=== PATIENT | male | born 1960 | race Caucasian/White ===

== ENCOUNTER 2017-11-11 16:21 | Observation (INO) ==
--- NOTE | 2017-11-11 19:23 | Emergency Department Note ---
Disposition Clinical Impression: Chest pain Qualifiers: Chest pain type: unspecified Qualified Code(s): R07.9 - Chest pain, unspecified Disposition: Admitted As Inpatient Condition: Good Referrals: NONE,PCP [Primary Care Provider] - Forms: ED Satisfaction Letter Time of Disposition: 20:25 Chest Pain HPI - General Chief Complaint: ED Chest Pain Stated Complaint: CP Tightness Time Seen by Provider: 11/11/17 19:17 Source: patient Limitations: no limitations Vital Signs Reviewed: Yes Nursing Notes Reviewed: Yes - History of Present Illness HPI Narrative: Patient is a 57-year-old male who presents to [facility] ED with a chief complaint of chest pain. States his symptoms started approximately 5 hours ago while he was at work. 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 Patient denies any nausea, vomiting, fever or chills. No recent cough or cold. States he has been getting intermittently short of breath and lightheaded today with exertion as well. No prior medical problems though he does not follow with a primary care physician. Pt complaint: chest pain Onset (ago): hour(s) Duration: gradually worsening Onset: during exertion Pain Location: substernal Severity: moderate Severity scale (1-10): 7 Quality: aching, heaviness Pain Radiation: none Improves with: nothing Worsens with: exertion Associated symptoms: Reports: dyspnea. Denies: nausea, vomiting Treatments prior to arrival chest pain: none - Related Data Home Medications Medication Instructions Recorded Confirmed Cetirizine HCl [Zyrtec] 10 mg PO DAILY 11/11/17 11/11/17 Ibuprofen [Motrin] 400 - 800 mg PO Q6H PRN 11/11/17 11/11/17 Allergies Allergy/AdvReac Type Severity Reaction Status Date / Time No Known Allergies Allergy Verified 11/11/17 16:37 All systems ED: reviewed and negative except as stated. Chest Pain PMH - Past Medical History Medical history: Reports: hyperlipidemia, hypertension Psychiatric history: Reports: no psych history - Social History Smoking Status: Never smoker Alcohol use: Reports: occasionally Drug use: Reports: none Physical Exam - General Limitations: no limitations General appearance: alert, in no apparent distress - Head Head exam: atraumatic, normocephalic, normal inspection - Eye Eye exam: Present: normal appearance, EOMI - ENT ENT exam: normal exam, normal oropharynx, mucous membranes moist - Neck Neck exam: Present: normal inspection, full ROM, trachea midline - Chest Chest inspection: Present: normal inspection, symmetric chest wall rise - Respiratory Respiratory exam: Present: normal lung sounds bilaterally - Cardiovascular Cardiovascular exam: Present: regular rate, normal rhythm, normal heart sounds - Abdominal Exam Abdominal exam: Present: soft, Non-Tender. Absent: tenderness, distention, guarding, rebound, rigidity - Extremities Exam Extremities exam: Present: normal inspection, full ROM. Absent: tenderness, pedal edema - Back Exam Back exam: Present: normal inspection, full ROM. Absent: tenderness - Neurological Exam Neurological exam: Present: alert, oriented X3 - Psychiatric Psychiatric exam: Present: normal affect, normal mood - Skin Skin exam: Present: warm, dry, intact, normal color Course Course Narrative: Patient seen and examined. Substernal chest pain worse with exertion. Cardiopulmonary workup initiated. We will likely admit for ACS workup. - Reevaluation(s) Reevaluation #1: Labwork, imaging unremarkable. However since his symptoms are very concerning, we will admit for ACS workup. Discussed with hospitalist Dr. Reich who has accepted patient for admission. Time: 20:28 Vital Signs Temperature 98.6 F 11/11/17 16:33 Pulse Rate 99 11/11/17 16:33 Respiratory Rate 18 11/11/17 16:33 Blood Pressure 137/98 11/11/17 16:33 O2 Sat by Pulse Oximetry 94 11/11/17 16:33 Temperature 98.6 F 11/11/17 16:33 Pulse Rate 94 11/11/17 21:22 Respiratory Rate 18 11/11/17 21:22 Blood Pressure 104/86 11/11/17 21:22 O2 Sat by Pulse Oximetry 95 11/11/17 21:22 Oxygen Delivery Oxygen Delivery Room Air Chest Pain - Medical Records Medical records reviewed: Yes I reviewed the patient's medical records. - Lab Data Lab results reviewed: Yes I reviewed the patient's lab results. Result diagrams: 11/11/17 18:12 11/11/17 18:12 Lab Results 11/11/17 11/11/17 11/11/17 Range/Units 18:12 18:12 20:10 WBC 9.3 (4.3-11.1) K/mcL RBC 6.12 H (4.19-5.50) M/mcL Hgb 19.3 H (12.9-16.9) g/dL Hct 54.2 H (37.5-50.1) % MCV 88.6 (83.0-100.0) fL MCH 31.5 (28.0-33.3) pg MCHC 35.6 H (31.6-35.5) g/dL RDW 12.6 (11.5-14.5) % Plt Count 227 (140-400) K/mcL MPV 10.8 (9.4-12.4) fL Immature Gran % 0.5 (0-4) % Seg Neutrophils % 51.1 % Lymphocytes % 36.6 % Monocytes % 9.1 % Eosinophils % 1.5 % Basophils % 1.2 % Neutrophils # 4.7 (1.6-8.9) K/mcL Lymphocytes # 3.4 (0.6-4.6) K/mcL Monocytes # 0.8 (0.0-1.3) K/mcL Eosinophils # 0.1 (0.0-0.6) K/mcL Basophils # 0.1 (0.0-0.2) K/mcL PT 11.2 (9.4-12.1) Seconds INR 1.0 APTT 20.2 L (26.0-36.0) Seconds Sodium 132 L (136-145) mEq/L Potassium 4.0 (3.5-5.1) mEq/L Chloride 100 (98-107) mEq/L Carbon Dioxide 22 L (23-29) mEq/L BUN 18 (6-20) mg/dL Creatinine 0.93 (0.70-1.30) mg/dL Est GFR ( Amer) > 60 (> 60) Est GFR (Non-Af Amer) > 60 (> 60) BUN/Creatinine Ratio 19 (6-26) Glucose 297 H (70-105) mg/dL Calculated Osmolality 287 (280-300) Calcium 9.5 (8.6-10.3) mg/dL Troponin I < 0.03 (< 0.04) ng/mL - Radiology Data Radiology results reviewed: Yes I reviewed the patient's radiology results. Chest X-Ray 11/11/17 16:44 IMPRESSION: No acute cardiopulmonary process. D/ 11/11/2017 17:19:07 Moses Davis MD / adarsh Interpreting Provider: Moses Davis MD - EKG Data EKG attestation: Yes I reviewed and interpreted this EKG. EKG results narrative: EKG done at 1625 shows sinus tachycardia with a rate of [address] elevation or depression. Q waves noted in lead 3 as well as inverted T wave. No prior EKG for comparison. Frequent PVCs noted. Heart Score - Score History: Moderately Suspicious EKG: Non Specific repolarisation Disturbance Age: 45-65 Risk Factors: 1-2 risk factors Troponin: Less than normal limit HEART Score Total: 4 Attestation Statement - Attestation Attestation: I, Jerson Paul DO, examined this patient [id number] and my medical decision-making was reviewed with Minerva Esquivel DO , Resident Physician. I agree with the documented findings, disposition and treatment plan as described except to the extent set forth below. Please see my progress notes for details. 57-year-old male presents emergency room with anginal like symptoms. He said he is on off for quite a long time. He has never been fully evaluated for the presentation today. Today the symptoms were worse than ever before.. Patient denies any other specific cardiac history this time. Patient denies shortness of breath headache vision changes nausea vomiting or diarrhea. Denies any trauma or injury. He has no specific cardiac history but does have hypertension and diabetes. Vital signs are stable in presentation. No other acute issues. Patient evaluated at the bedside showing normal physical exam trachea is midline lungs are clear to auscultation heart is regular. Abdomen is soft. Patient still has mild pressure to the anterior chest wall. Patient has had almost complete resolution of symptoms prior to coming in because of anginal-like presentation. Patient had EKG chest x-ray screening labs completed this time with no remarkable changes are noted at this point. EKG shows stable rhythm. Patient will be provided with aspirin and she was sent here. Hospitalist was contacted for admission. No other acute issues noted at this point. Patient will be admitted for further evaluation and management of what appears to be anginal-like presentation. See detailed recommendation physical exam, medical intervention, medical decision-making and disposition in the resident physician's note. No critical care by the patient's treatment course. Admission process will be established at this time. Currently, there is no reason to start the patient on anticoagulation since he is low risk based on presentation. We will continue monitoring in emergency room until admission process is completed 2100 Patient had complete resolution of the chest pressure with the nitroglycerin trial. Blood pressure maintained. Patient will require admission at this point. Nitroglycerin drip will be ordered at the patient has be presentation of these symptoms. Vital signs otherwise stable admission process to be completed at this point Patient admitted to the hospital this time for further evaluation. No other acute clinical concern is noted at this time
[2017-11-11 19:24] LABS: BUN/Creatinine Ratio 19 (6-26); Blood Urea Nitrogen 18 mg/dL (6-20); Calcium 9.5 mg/dL (8.6-10.3); Carbon Dioxide 22 mEq/L (23-29); Chloride 100 mEq/L (98-107); Glucose 297 mg/dL (70-105); Osmolality,Calculated 287 (280-300); Sodium 132 mEq/L (136-145); eGFR For African Americans > 60 (> 60); eGFR For Non-African Americans > 60 (> 60)
[2017-11-11 19:26] LABS: Troponin I < 0.03 ng/mL (< 0.04)
[2017-11-11 19:27] LABS: Basophils # 0.1 K/mcL (0.0-0.2); Basophils % 1.2 %; Eosinophils # 0.1 K/mcL (0.0-0.6); Eosinophils % 1.5 %; Hematocrit 54.2 % (37.5-50.1); Hemoglobin 19.3 g/dL (12.9-16.9); Immature Granulocytes % 0.5 % (0-4); Lymphocytes # 3.4 K/mcL (0.6-4.6); Lymphocytes % 36.6 %; Mean Corpuscular HGB Conc 35.6 g/dL (31.6-35.5); Mean Corpuscular Hemoglobin 31.5 pg (28.0-33.3); Mean Corpuscular Volume 88.6 fL (83.0-100.0); Mean Platelet Volume 10.8 fL (9.4-12.4); Monocytes # 0.8 K/mcL (0.0-1.3); Monocytes % 9.1 %; Neutrophils # 4.7 K/mcL (1.6-8.9); Platelet Count 227 K/mcL (140-400); Red Blood Count 6.12 M/mcL (4.19-5.50); Red Cell Distribution Width 12.6 % (11.5-14.5); Segmented Neutrophils % 51.1 %
[2017-11-11] MEDS ORDERED: Aspirin 81 MG TAB.CHEW PO STA (19:28)
[2017-11-11] MEDS ORDERED: Nitroglycerin 0.4 MG TAB.SUBL SL PRN ×2 (19:37→20:49)
[2017-11-11] MEDS ORDERED: 0.9 % Sodium Chloride 1,000 ML IVC ONE (19:37)
[2017-11-11] MEDS ORDERED: Aspirin 81 MG TAB.CHEW ONE (19:46)
[2017-11-11] MEDS ORDERED: Naloxone 0.4 MG/ML INJ IVP PRN (20:44)
[2017-11-11] MEDS ORDERED: traMADol 50 MG TABLET PO PRN (20:44)
[2017-11-11] MEDS ORDERED: Acetaminophen 325 MG TABLET PO PRN (20:44)
[2017-11-11 20:49] LABS: Prothrombin Time 11.2 Seconds (9.4-12.1)
[2017-11-11] MEDS ORDERED: *HR* Dextrose 50 % in Water (Syg) 50 ML SYRINGE IVP PRN (20:50)
[2017-11-11] MEDS ORDERED: Dextrose Gel 15 GM/37.5 ML TUBE PO PRN ×2 (20:50)
[2017-11-11] MEDS ORDERED: D5% in Water 1,000 ML IVC PRN (20:50)
[2017-11-11 20:56] LABS: Activated Partial Thrombo Time 20.2 Seconds (26.0-36.0)
--- NOTE | 2017-11-11 21:01 | Internal Med History&Physical ---
Date of Encounter: 11/11/17 Time of Encounter: 20:35 Assessment and Plan (1) Chest pain Current visit: Yes Status: Acute 1. Will cycle troponins, EKG's, and order ECHO. 2. Hold off on stress testing until evaluated by Hematology for polycythemia. 3. Stress testing can also be done as outpatient if he remains symptom free. Qualifiers: Chest pain type: unspecified Qualified Code(s): R07.9 - Chest pain, unspecified (2) Polycythemia Current visit: Yes Status: Acute 1. Will place on daily aspirin. 2. Repeat labs in the morning. 3. Consult hematology -- Dr. Hogan notified. (3) Hyperglycemia Current visit: Yes Status: Acute 1. Will check A1C and monitor glucose closely. 2. Will place on SSI. 3. Patient will likely need oral diabetic agents for glucose control. (4) DVT prophylaxis Current visit: Yes Status: Acute 1. Heparin SQ. Internal Medicine - H&P: HPI Chief complaint: chest pain Admitted From: Emergency Dept Plans for Post Hospital Care: Home History of present illness: Mr. Magana is a 57 year old male presents with a several hour history of substernal chest pain and pressure associated with some diaphoresis, nausea, and shortness of breath. He came to ER where chest pain was slowly improving without any intervention. He was and given some sublingual nitroglycerin and had complete pain relief. Because of his symptoms and history of hypertension, he was admitted to hospitalist service for further workup and care. Upon my assessment of the patient ER, he is chest pain-free now. Blood pressure is much improved now after one sublingual nitroglycerin dose. He denies any fevers, cough, congestion, vomiting, or diarrhea. He was feeling well until today when he had his chest pain episode at work. He recently moved back to [place] from [facility] and has no PCP. He has a history of hypertension but has not been treated for several years. He also said he had a history of prediabetes in the past but never did require treatment for diabetes. I reviewed his labs and note that he has a significant polycythemia. He is not a smoker and never has been. He does not look dehydrated. There is no family history of polycythemia rubra vera and he's never been told his hemoglobin is elevated. Given his elevation of hemoglobin and risk for sludge effect, we will consult hematology to help evaluate for possible polycythemia as well as placing him on aspirin and IV fluids. I would hold off on stress test until Hematology sees patient. Past Med Surg Social Fam HX - Past Medical History Attestation: Yes The following information was validated with the patient. Source: patient, other (ER notes) Medical history: hyperlipidemia, hypertension Psychiatric history: no psych history - Past Surgical History Surgical History: appendectomy - Social History Smoking Status: Never smoker Smokeless Tobacco Status: No Alcohol use: occasionally Drug use: none Occupational status: employed Current living situation: Home, With Family Activity Level: Independent ambulation, Very active Recent Out of Country Travel Within the Last 8 Weeks: No - Family History Mother Hx Family Cardiac Disorders: Yes Father Hx Family Cardiac Disorders: Yes Internal Medicine - H&P: Meds Cetirizine HCl [Zyrtec] 10 mg PO DAILY 11/11/17 [History] Ibuprofen [Motrin] 400 - 800 mg PO Q6H PRN 11/11/17 [History] 3 Allergy/AdvReac Type Severity Reaction Status Date / Time No Known Allergies Allergy Verified 11/11/17 16:37 - Constitutional Constitutional: no chills, no fever(s), no night sweats - EENT Eyes: no blurry vision, no change in vision Ears: no ear pain, no tinnitus Nose, mouth and throat: no nasal congestion, no nasal discharge, no sinus pressure, no sore throat - Cardiovascular Cardiovascular ROS IM: chest pain, diaphoresis, dyspnea, dyspnea on exertion, no orthopnea, no palpitations, no paroxysmal nocturnal dyspnea, no syncope - Respiratory Respiratory: no cough, no hemoptysis, no chest congestion, no excessive phlegm production, no change in phlegm color - Gastrointestinal Gastrointestinal: nausea, no abdominal pain, no diarrhea, no hematemesis, no hematochezia, no melena, no vomiting - Genitourinary Genitourinary ROS male: no dysuria, no flank pain, no hematuria - Musculoskeletal Musculoskeletal ROS IM: no arthralgias, no back pain - Integumentary Integumentary IM: no rash, no jaundice - Neurological Neurological ROS: no dizziness, no focal weakness, no frequent falls, no headache(s) - Psychiatric Psychiatric: no anxiety, no depression - Endocrine Endocrine IM: no polydipsia, no polyuria - Hematologic/Lymphatic Hematologic/Lymphatic: no easy bruising, no lymphadenopathy - Allergic/Immunologic Allergic/Immunologic: no wheezing, no GI upset with certain foods - Constitutional Vitals: Temp Pulse Resp BP Pulse Ox 98.6 F 101 18 111/86 96 11/11/17 16:33 11/11/17 20:34 11/11/17 20:34 11/11/17 20:34 11/11/17 20:34 General appearance: Present: cooperative, A&O X 3, pleasant, no acute distress, answers questions appropriately - Head Head exam: Present: atraumatic, normal inspection - Eye Eye exam: Present: EOMI, normal appearance, PERRL. Absent: scleral icterus Pupils: Present: normal accommodation - ENT ENT exam: Present: mucous membranes moist, normal exam, normal oropharynx - Neck Neck exam general surgery: Present: full ROM, supple. Absent: lymphadenopathy, tenderness, nuchal rigidity, thyromegaly - Expanded Neck Exam Neck exam: Absent: carotid bruit - Respiratory Respiratory exam: Present: CTAB. Absent: chest wall tenderness, rales, respiratory distress, rhonchi, wheezes - Cardiovascular Cardiovascular exam: Present: RRR, +S1, +S2. Absent: diastolic murmur, JVD, rubs, systolic murmur - GI/Abdominal GI/Abdominal exam: Present: normal bowel sounds, soft. Absent: guarding, hepatomegaly, mass, rebound, splenomegaly, tenderness - Extremities Exam Extremities exam: Present: full ROM, normal capillary refill, warm, radial pulses palpable and symmetrical. Absent: calf tenderness, joint swelling, pedal edema, tenderness - Back Exam Back exam: Present: normal inspection. Absent: CVA tenderness (L), CVA tenderness (R) - Neurological Exam Neurological exam: Present: alert, CN II-XII intact, oriented X3, no focal deficits, strengths equal and symetr throughout - Psychiatric Psychiatric exam: Present: normal affect, normal mood - Skin Skin exam: Present: dry, warm. Absent: rash Internal Med - H&P Results - Labs CBC & Chem 7: 11/11/17 18:12 11/11/17 18:12 Labs: Short CBC 11/11/17 Range/Units 18:12 WBC 9.3 (4.3-11.1) K/mcL Hgb 19.3 H (12.9-16.9) g/dL Hct 54.2 H (37.5-50.1) % Plt Count 227 (140-400) K/mcL Neutrophils # 4.7 (1.6-8.9) K/mcL BMP 11/11/17 18:12 Sodium 132 L Potassium 4.0 Chloride 100 Carbon Dioxide 22 L BUN 18 Creatinine 0.93 Glucose 297 H Calcium 9.5 Cardiac Enzymes 11/11/17 Range/Units 18:12 Troponin I < 0.03 (< 0.04) ng/mL - EKG Data -: EKG Interpreted by Myself EKG shows normal: sinus rhythm - EKG Data Prior EKG available for review: no EKG comments: 11/11/17 21:05 NSR/borderline tachycardic; No acute ST-T changes - Impressions ITS Impressions Chest X-Ray 11/11/17 16:44 IMPRESSION: No acute cardiopulmonary process. D/ / 11/11/2017 17:19:07 Moses Davis MD / daarsh Interpreting Provider: Moses Davis MD - Diagnostic Studies Chest x-ray Status: image reviewed by me (negative)
[2017-11-11] MEDS: *HR* Heparin 5,000 UNIT/ML VIAL SQ SCH (22:05)
[2017-11-11] MEDS: 0.9 % Sodium Chloride 1,000 ML IVC SCH (22:18)
[2017-11-12 01:15] LABS: Basophils # 0.1 K/mcL (0.0-0.2); Basophils % 1.1 %; Eosinophils # 0.1 K/mcL (0.0-0.6); Eosinophils % 1.8 %; Hematocrit 49.2 % (37.5-50.1); Immature Granulocytes % 0.6 % (0-4); Lymphocytes # 3.5 K/mcL (0.6-4.6); Lymphocytes % 44.7 %; Mean Corpuscular HGB Conc 35.2 g/dL (31.6-35.5); Mean Corpuscular Hemoglobin 31.4 pg (28.0-33.3); Mean Corpuscular Volume 89.3 fL (83.0-100.0); Mean Platelet Volume 11.1 fL (9.4-12.4); Monocytes # 0.7 K/mcL (0.0-1.3); Monocytes % 9.1 %; Neutrophils # 3.3 K/mcL (1.6-8.9); Platelet Count 199 K/mcL (140-400); Red Blood Count 5.51 M/mcL (4.19-5.50); Red Cell Distribution Width 12.5 % (11.5-14.5); Segmented Neutrophils % 42.7 %
[2017-11-12 01:16] LABS: Hemoglobin 17.3 g/dL (12.9-16.9)
[2017-11-12 01:21] LABS: INR 1.1; Prothrombin Time 11.4 Seconds (9.4-12.1)
[2017-11-12 01:24] LABS: Activated Partial Thrombo Time 27.6 Seconds (26.0-36.0)
[2017-11-12 02:03] LABS: Alanine Aminotransferase 14 Units/L (7-52); Albumin 3.7 g/dL (3.5-5.7); Albumin/Globulin Ratio 1.6 (1.1-2.2); Alkaline Phosphatase 75 Units/L (34-104); Aspartate Amino Transferase 14 Units/L (13-39); BUN/Creatinine Ratio 23 (6-26); Bilirubin,Total 0.7 mg/dL (0.3-1.0); Blood Urea Nitrogen 17 mg/dL (6-20); Calcium 8.5 mg/dL (8.6-10.3); Carbon Dioxide 21 mEq/L (23-29); Chloride 101 mEq/L (98-107); Cholesterol 352 mg/dL (< 200); Globulin 2.3 g/dL (2.4-3.5); Glucose 318 mg/dL (70-105); HDL Cholesterol 39 mg/dL (40-59); Magnesium 1.6 mg/dL (1.6-2.6); Osmolality,Calculated 288 (280-300); Potassium 3.5 mEq/L (3.5-5.1); Sodium 132 mEq/L (136-145); Triglycerides 1445 mg/dL (< 150); eGFR For African Americans > 60 (> 60); eGFR For Non-African Americans > 60 (> 60)
[2017-11-12] MEDS: *HR* Heparin 5,000 UNIT/ML VIAL SQ SCH ×2 (07:39→21:30)
[2017-11-12] MEDS: Insulin LISPRO 300 UNITS/3 ML VIAL SQ SCH ×3 (07:39→16:22)
[2017-11-12] MEDS: Aspirin Enteric Coated 81 MG Tablet PO SCH (07:39)
[2017-11-12] MEDS: Loratadine 10 MG TABLET PO SCH (07:39)
[2017-11-12] MEDS: 0.9 % Sodium Chloride 1,000 ML IVC SCH (08:58)
[2017-11-12 09:59] LABS: Estimated Average Glucose 235 mg/dl; Hemoglobin A1C 9.8 %
--- NOTE | 2017-11-12 15:02 | Oncology Inp Consult Note ---
<Cathi Harvey - Last Filed: 11/13/17 10:13> Date of Encounter: 11/12/17 Time of Encounter: 15:02 Assessment and Plan (1) Polycythemia Status: Acute Assessment and plan: RBC studies have slightly decreased from previous lab draw yesterday. Today lab work reveals RBC 5.51, Hgb 17.3, and Hct 49%. No associated leukocytosis or thrombocytosis. As detailed in HPI, the patient does not have prior lab work for comparison. He is a nonsmoker and no history of diagnosed sleep apnea. 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 He reports to me that during the winter time they will often close off the doors to keep the cold out, however, during this time machines and engines continue to run. His symptoms did begin at work, he had chest pain with associated SOB and lightheadedness. Symptoms improved upon presentation to ER, he denies chest pain currently. He continues to experience headache. He denies any other associated neurological symptoms. Serial troponins have been negative. Will plan to check stat carboxyhemogblobin. Given the information above, I am concerned for carbon monoxide buildup in an area with poor ventilation. I called lab and they cannot add the carboxyhemoglobin on to lab work from his ER presentation, so this may not be a true representation of his level upon his presentation. I have also ordered EPO and JAK2 mutation assessment for polycythemia workup. JAK2 mutation may take a few days for results and I will arrange for follow up with hematology. He does live in [place] but drives to this area for work and agreeable to follow up with us vs. somewhere closer to home. Pending workup as mentioned above, his symptoms may be related to pending lab studies. In the meantime would not hinder further cardiac workup as deemed necessary per primary team. - Data of Consult Requesting Physician: Hermes Barker Primary Care Provider: PCP NONE - Consult Narrative Reason for consult: Erythrocytosis History of present illness: Mr. Magana is a 57 year old male with past medical history significant for hypertension, hyperlipidemia and new onset hyperglycemia. He reports he was at work and had a several hour history of substernal chest pain and pressure associated with some diaphoresis, nausea, and shortness of breath. Following his presentation to the ER his chest pain began to improve without intervention and after nitroglycerin administration his chest pain is markedly improved. Lab work revealed polycythemia with red blood cell count of 6.12, hemoglobin of 19.3, and hematocrit 54%. He has recently relocated from the [place] area and has no PCP. He lives in [place], [place] with his . He works at [employer]. Most previous lab work per patient was about 1 year ago when he lived in [place] and according to patient he had no abnormality noted on his blood work at this time. He has no history of smoking. He denies androgens or steroid use. His AST/ALTs are normal. He reports no history of sleep apnea, he does report increasing daytime fatigue however this was not evident until more recently following a shift change to third shift. He has no h/o DVT/PE. He was admitted for further cardiac workup and hematology consult for erythrocytosis. His serial troponins have been negative, EKG sinus tachy with PVC's, Echo with LVEF 55% and mild left ventricular diastolic dysfunction. Past Med Surg Social Fam HX - Past Medical History Medical history: hyperlipidemia, hypertension Psychiatric history: no psych history - Past Surgical History Surgical History: appendectomy - Social History Smoking Status: Never smoker Smokeless Tobacco Status: No Alcohol use: occasionally Drug use: none - Family History Mother Hx Family Cardiac Disorders: Yes Father Hx Family Cardiac Disorders: Yes Medications and Allergies Cetirizine HCl [Zyrtec] 10 mg PO DAILY 11/11/17 [History] Ibuprofen [Motrin] 400 - 800 mg PO Q6H PRN 11/11/17 [History] 3 Allergy/AdvReac Type Severity Reaction Status Date / Time No Known Allergies Allergy Verified 11/11/17 16:37 Constitutional: Present: headache(s), weakness. Absent: anorexia, fever(s), frequent falls, weight loss Additional comments: no acute visual changes, patient does report he has chronic "floaters" which have been present for years Cardiovascular: Present: as per HPI. Absent: irregular heart rhythm, palpitations Additional comments: since admission he has not experienced any further chest pain, lightheadedness and SOB has improved Respiratory: Present: as per HPI Gastrointestinal: Absent: abdominal pain, change in bowel habits, dysphagia, heartburn, hematemesis, hematochezia, melena, nausea, vomiting Additional comments: denies dysuria or hematuria Musculoskeletal: Absent: numbness, tingling Integumentary: Absent: change in pigmentation, wounds Neurological: Present: as per HPI, dizziness, headache(s). Absent: confusion, focal weakness Endocrine: Present: as per HPI. Absent: polydipsia, polyphagia Hematologic/Lymphatic: Present: as per HPI Additional comments: He denies PV associated symptoms such as flushing/ilana appearance, abdominal pain, pruritis, acute visual changes. Oncology - Exam - Constitutional Vitals: Temp Pulse Resp BP Pulse Ox 98.4 F 73 18 136/87 97 11/12/17 11:29 11/12/17 11:29 11/12/17 11:29 11/12/17 11:29 11/12/17 11:29 General appearance: cooperative, no acute distress, obese, no febrile - Head Head exam: Present: atraumatic - ENT ENT exam: Present: mucous membranes moist - Respiratory Respiratory exam: Present: CTAB. Absent: respiratory distress - Cardiovascular Cardiovascular exam: Present: RRR, +S1, +S2 - GI/Abdominal GI/Abdominal exam: Present: normal bowel sounds, soft. Absent: tenderness - Extremities Exam Extremities exam: Present: normal inspection. Absent: calf tenderness - Neurological Exam Neurological exam: Present: alert, oriented X3, no focal deficits, strengths equal and symetr throughout - Psychiatric Psychiatric exam: Present: normal affect, normal mood - Skin Skin exam: Present: warm Additional comments: Patient does appear to have a flushed appearance noted to face and upper chest, however, patient states he does not notice any changes and this is baseline for him Oncology - Results Labs: Short CBC 11/12/17 Range/Units 00:19 WBC 7.8 (4.3-11.1) K/mcL Hgb 17.3 H D (12.9-16.9) g/dL Hct 49.2 (37.5-50.1) % Plt Count 199 (140-400) K/mcL Neutrophils # 3.3 (1.6-8.9) K/mcL BMP 11/12/17 00:19 Sodium 132 L Potassium 3.5 Chloride 101 Carbon Dioxide 21 L BUN 17 Creatinine 0.74 Glucose 318 H Calcium 8.5 L Cardiac Enzymes 11/12/17 11/12/17 Range/Units 00:19 06:14 Troponin I < 0.03 < 0.03 (< 0.04) ng/mL Liver Function 11/12/17 Range/Units 00:19 Total Bilirubin 0.7 (0.3-1.0) mg/dL AST 14 (13-39) Units/L ALT 14 (7-52) Units/L Alkaline Phosphatase 75 (34-104) Units/L Albumin 3.7 (3.5-5.7) g/dL Consult Discharge Plan - Plan Referrals: NONE,PCP [Primary Care Provider] - <Delia Brown - Last Filed: 11/13/17 11:04> Date of Encounter: 11/13/17 - Data of Consult Requesting Physician: Hermes Barker Primary Care Provider: PCP NONE - Consult Narrative History of present illness: I examined this patient and my medical decision-making was reviewed with the Advanced Practice Nurse, Cathi Harvey. I agree with the documented findings, disposition and treatment plan as described except to the extent set forth below. Oncology - Exam - Constitutional Vitals: Temp Pulse Resp BP Pulse Ox 98.7 F 76 18 114/78 98 11/13/17 07:00 11/13/17 07:00 11/13/17 07:00 11/13/17 07:00 11/13/17 07:00 Oncology - Results Labs: Short CBC 11/13/17 Range/Units 05:51 WBC 6.5 (4.3-11.1) K/mcL Hgb 17.0 H (12.9-16.9) g/dL Hct 48.3 (37.5-50.1) % Plt Count 187 (140-400) K/mcL Neutrophils # 2.3 (1.6-8.9) K/mcL
--- NOTE | 2017-11-12 16:19 | Internal Med Progress Note ---
Date of Encounter: 11/12/17 Time of Encounter: 10:45 - Assessment and plan (1) Polycythemia Current Visit: Yes Status: Acute Assessment and plan: Hemoglobin 17.3. Patient denies smoking or sleep apnea. 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 Symptoms began at work, chest pain with associated shortness of breath and lightheadedness. Oncology has ordered other testing including a carboxyhemoglobin. Continue to monitor. (2) Chest pain Current Visit: Yes Status: Acute Assessment and plan: Patient presented to the emergency department with substernal chest pain, squeezing, lightheadedness and shortness of breath onset at work at 2 PM yesterday. Patient reports chest pain was resolved with nitroglycerin in the emergency department around 8 PM. He reported fatigue with exertion for a couple of days prior to admission. Chest pain was held due to polycythemia, labs and carboxyhemoglobin are pending. Patient has been evaluated by oncology. Patient denies chest pain since last night, troponins have been negative, chest x-ray is negative, echocardiogram shows preserved EF with mild LV DT and no significant valvular dysfunction. Stress test will be ordered for morning. Nothing by mouth after midnight. Oncology reports that polycythemia will not hinder or affect stress test and to proceed. Chest X-Ray 11/11/17 16:44 IMPRESSION: No acute cardiopulmonary process. D/ / 11/11/2017 17:19:07 Moses Davis MD / adarsh Interpreting Provider: Moses Davis MD Echocardiogram 11/12/17 10:00 Impressions: LVEF 55%. Mild left ventricular diastolic dysfunction. Normal right ventricular structure and function. No significant valvular dysfunction. No pulmonary hypertension. Left Ventricular Wall Motion: Rest Echo Findings All wall segments showed normal motion. Qualifiers: Chest pain type: unspecified Qualified Code(s): R07.9 - Chest pain, unspecified (3) DVT prophylaxis Current Visit: Yes Status: Acute (4) Diabetes type 2, uncontrolled Current Visit: Yes Status: Chronic Assessment and plan: Patient has reported prior history of diabetes, states that he was taking glyburide, stopped due to diarrhea. A1c is 9.8%. Sliding scale insulin while admitted. We will start another oral antidiabetic agent on discharge. Qualifiers: Diabetes mellitus mcc insulin use: without mcc use Diabetes mellitus complication status: without complication Qualified Code(s): E11.65 - Type 2 diabetes mellitus with hyperglycemia - Subjective Interval history: Patient was seen and assessed at 10:45 AM. He was resting quietly he just returned from his echocardiogram. Eyes any chest pain since 8 PM last night. He reports that pain was relieved by nitroglycerin. He also reports recently a that he has felt fatigued with any exertion. Patient reports that he used to take glyburide at home for diabetes but stopped taking it due to diarrhea. States he did not discuss this with primary care. A1c has been ordered and completed, elevated. We will discuss medication options tomorrow. He denies any headache, neck pain, blurred vision or dizziness. He denies any chest pain , shortness of breath, nausea, vomiting, diarrhea. He denies abdominal pain or any urinary symptoms. - Constitutional Vitals: Temp Pulse Resp BP Pulse Ox 98.0 F 78 18 149/99 98 11/12/17 15:00 11/12/17 15:00 11/12/17 15:00 11/12/17 15:00 11/12/17 15:00 General appearance: Present: cooperative, A&O X 3, pleasant, no acute distress, answers questions appropriately - Head Head exam: Present: atraumatic, normal inspection, normocephalic - Eye Eye exam: Present: normal appearance, conjuntiva pink, sclera anicteric - Neck Neck exam general surgery: Present: supple, trachea midline. Absent: lymphadenopathy, tenderness - Respiratory Respiratory exam: Present: CTAB. Absent: accessory muscle use, chest wall tenderness, decreased breath sounds, rales, respiratory distress, rhonchi, wheezes - Cardiovascular Cardiovascular exam: Present: RRR, +S1, +S2. Absent: diastolic murmur, gallop, irregular rhythm, rubs, systolic murmur - GI/Abdominal GI/Abdominal exam: Present: normal bowel sounds, soft. Absent: hepatomegaly, tenderness - Extremities Exam Extremities exam: Present: normal capillary refill, normal inspection, warm, radial pulses palpable and symmetrical. Absent: calf tenderness, cyanotic, pedal edema, tenderness - Neurological Exam Neurological exam: Present: alert, oriented X3, no focal deficits. Absent: facial droop, speech deficit - Skin Skin exam: Present: dry, intact, normal color, warm. Absent: rash Internal Medicine: Result - Labs CBC & Chem 7: 11/12/17 00:19 11/12/17 00:19 Labs: Short CBC 11/12/17 Range/Units 00:19 WBC 7.8 (4.3-11.1) K/mcL Hgb 17.3 H D (12.9-16.9) g/dL Hct 49.2 (37.5-50.1) % Plt Count 199 (140-400) K/mcL Neutrophils # 3.3 (1.6-8.9) K/mcL BMP 11/12/17 00:19 Sodium 132 L Potassium 3.5 Chloride 101 Carbon Dioxide 21 L BUN 17 Creatinine 0.74 Glucose 318 H Calcium 8.5 L Cardiac Enzymes 11/12/17 11/12/17 Range/Units 00:19 06:14 Troponin I < 0.03 < 0.03 (< 0.04) ng/mL Liver Function 11/12/17 Range/Units 00:19 Total Bilirubin 0.7 (0.3-1.0) mg/dL AST 14 (13-39) Units/L ALT 14 (7-52) Units/L Alkaline Phosphatase 75 (34-104) Units/L Albumin 3.7 (3.5-5.7) g/dL - ABG Interpretation ABG results: PT/INR, D-dimer PT 11.4 Seconds (9.4-12.1) 11/12/17 00:19 - Impressions Impressions Echocardiogram 11/12/17 10:00 Impressions: LVEF 55%. Mild left ventricular diastolic dysfunction. Normal right ventricular structure and function. No significant valvular dysfunction. No pulmonary hypertension. Left Ventricular Wall Motion: Rest Echo Findings All wall segments showed normal motion. Findings: Study Quality * Technically adequate exam. Left Ventricle * LVEF 55%. * Normal LV chamber size, wall thickness and function. * Mild left ventricular diastolic dysfunction. Right Ventricle * Normal right ventricular structure and function. Left Atrium * Normal left atrial size. Right Atrium * Normal right atrial size. Mitral Valve * Normal mitral valve structure. * No mitral regurgitation. * No mitral stenosis. Aortic Valve * No aortic regurgitation. * Aortic valve not well visualized. * No aortic stenosis. Tricuspid Valve * Tricuspid valve not well visualized. * Trace tricuspid regurgitation. Pulmonic Valve * Pulmonic valve is not well visualized. * No pulmonic stenosis. * No pulmonic regurgitation. Pulmonary Artery * Pulmonary artery not well visualized. Aorta * Normally sized aortic root. Pericardium * There is no pericardial effusion present. Interatrial Septum * No evidence of PFO by color Doppler. IVC * The IVC is not well evaluated. ECG Findings * Normal sinus rhythm. Consult Discharge Plan - Plan Referrals: NONE,PCP [Primary Care Provider] -
--- NOTE | 2017-11-12 17:44 | Electrocardiograph Report ---
[place] [id number] Test Date: 2017-11-11 Pat Name: Mike Magana Department: 104 Room: [facility] Gender: M Accounts Payable Manager: MSC : [id number] Requested By: Shaista See Order Number: [id number] Reading MD: Dasha Myers Measurements Intervals [place] Rate: 101 P: 35 VT: 172 QRS: 4 QRSD: 85 T: 15 QT: 323 QTc: 381 Interpretive Statements SINUS TACHYCARDIA WITH VENTRICULAR PREMATURE COMPLEXES POSSIBLE LEFT ATRIAL ENLARGEMENT ABNORMAL RHYTHM ECG Electronically Signed On 11-12-2017 17:43:23 EDT by Dasha Myers
[2017-11-13 06:33] LABS: Basophils # 0.1 K/mcL (0.0-0.2); Basophils % 1.4 %; Eosinophils # 0.2 K/mcL (0.0-0.6); Eosinophils % 3.1 %; Hematocrit 48.3 % (37.5-50.1); Immature Granulocytes % 0.8 % (0-4); Lymphocytes # 3.2 K/mcL (0.6-4.6); Lymphocytes % 49.5 %; Mean Corpuscular HGB Conc 35.2 g/dL (31.6-35.5); Mean Corpuscular Hemoglobin 31.5 pg (28.0-33.3); Mean Corpuscular Volume 89.4 fL (83.0-100.0); Mean Platelet Volume 10.6 fL (9.4-12.4); Monocytes # 0.6 K/mcL (0.0-1.3); Monocytes % 9.5 %; Neutrophils # 2.3 K/mcL (1.6-8.9); Platelet Count 187 K/mcL (140-400); Red Cell Distribution Width 12.3 % (11.5-14.5); Segmented Neutrophils % 35.7 %
[2017-11-13] MEDS ORDERED: Regadenoson 0.4 MG/5 ML SYRINGE IVP ONE (06:47)
[2017-11-13] MEDS: Insulin LISPRO 300 UNITS/3 ML VIAL SQ SCH ×2 (08:45→12:26)
[2017-11-13 11:25] LABS: BUN/Creatinine Ratio 15 (6-26); Blood Urea Nitrogen 10 mg/dL (6-20); Calcium 8.6 mg/dL (8.6-10.3); Carbon Dioxide 25 mEq/L (23-29); Chloride 99 mEq/L (98-107); Glucose 253 mg/dL (70-105); Osmolality,Calculated 280 (280-300); Potassium 3.9 mEq/L (3.5-5.1); Sodium 131 mEq/L (136-145); eGFR For African Americans > 60 (> 60); eGFR For Non-African Americans > 60 (> 60)
[2017-11-13] MEDS: Aspirin Enteric Coated 81 MG Tablet PO SCH (12:26)
[2017-11-13] MEDS: Loratadine 10 MG TABLET PO SCH (12:26)
[2017-11-13] MEDS: *HR* Heparin 5,000 UNIT/ML VIAL SQ SCH (12:26)
--- NOTE | 2017-11-13 13:46 | Oncology Inp Progress Note ---
Date of Encounter: 11/13/17 Time of Encounter: 13:46 (1) Polycythemia Current Visit: Yes Status: Acute Assessment and plan: His RBC, Hgb and Hct lab studies have all improved and almost completely normalized since his admission. His hgb is slightly elevated at 17 today, others normal. No associated leukocytosis or thrombocytosis. As detailed in consult note, he does not appear to have risk factors for secondary polycythemia and does not report any symptoms associated with PV. He is a nonsmoker and no history of diagnosed sleep apnea. 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 He also shared with me today that over the weekend they had installed a new gas heating unit in his home. His denies any related symptoms. His carboxyhemoglobin resulted at 4%. While normal, this is high end normal especially for a non smoker. It should be of note that this result is slightly sub-optimal given that the level was drawn after he had been removed from the potential source for 12-24 hours. Given his presentation and lab work as detailed above, I voiced my concern for carbon monoxide exposure. I recommended they buy a carbon monoxide test or alarm for their home [place] and recommended against closing doors at work which could provide ventilation. Discussed s/s of carbon monoxide exposure of which need to be recognized immediately. His EPO and JAK2 mutation assessment for polycythemia workup is still pending. Given the information above I would suspect these to come back normal. Since JAK2 is a send out and will take some time to result, I have arranged for a follow up with Dr. Hogan for further discussion regarding lab results and to check his CBC. In the meantime would not hinder further cardiac workup as deemed necessary per primary team. Oncology: Subj Interval history: Mr. Magana is sitting up in his chair, his and a friend are at bedside. He denies pain and reports he has been chest pain free since his admission. He does continue to report a mild headache. - Constitutional Vitals: Vital Signs Temp Pulse Resp BP Pulse Ox 11/13/17 07:00 98.7 F 76 18 114/78 98 11/13/17 03:57 98.4 F 70 17 111/73 96 11/12/17 23:47 98.7 F 68 17 134/85 98 11/12/17 21:37 98 11/12/17 19:14 99 F 76 14 153/79 97 11/12/17 15:00 98.0 F 78 18 149/99 98 Intake and Output 11/12/17 11/13/17 11/13/17 23:59 07:59 15:59 Intake Total 200 / 200 Balance 200 / 200 Intake: Oral 200 / 200 Other: # Voids 1 Blood Glucose* 288 242 General appearance: cooperative, no acute distress, no febrile - Head Head exam: Present: atraumatic - ENT ENT exam: Present: mucous membranes moist - Respiratory Respiratory exam: Present: CTAB. Absent: respiratory distress - Cardiovascular Cardiovascular exam: Present: RRR, +S1, +S2 - GI/Abdominal GI/Abdominal exam: Present: normal bowel sounds, soft. Absent: tenderness - Extremities Exam Extremities exam: Present: normal inspection. Absent: calf tenderness - Neurological Exam Neurological exam: Present: alert, oriented X3, no focal deficits, strengths equal and symetr throughout - Psychiatric Psychiatric exam: Present: normal affect, normal mood - Skin Skin exam: Present: normal color, warm Oncology: Obj Data - Labs CBC & Chem 7: 11/13/17 05:51 11/13/17 10:51 - ABG Interpretation ABG results: PT/INR, D-dimer PT 11.4 Seconds (9.4-12.1) 11/12/17 00:19 Consult Discharge Plan - Plan Referrals: NONE,PCP [Primary Care Provider] -
[2017-11-13 13:48] VITALS: BP 118/67
--- NOTE | 2017-11-13 16:28 | Discharge Summary ---
- NOTES TO OUTPATIENT PROVIDER Notes to Outpatient Provider: Patient will need close monitoring for his A1c which was 9.8 during admission, also recommended that he follow-up for close monitoring of his cholesterol and triglycerides. Orders not resulted at time of discharge: Pending orders 11/12/17 11:21 Erythropoietin Routine JAK2 (V617F) Mutation by PCR Routine JAK2 EXON 12 Mut non-V617F Routine 11/12/17 16:42 NM joseph perf SPECT multi [NM] Routine Date of Encounter: 11/13/17 Time of Encounter: 12:05 - Discharge Diagnosis (1) Polycythemia Priority: Secondary Status: Acute Comments: Hemoglobin has returned almost to normal today at 17.0. Patient and I discussed the need for ventilation at his job, patient verbalizes concern over gait gas furnace placed in his home or the weekend. I recommended that he get a carbon monoxide detector for home if he is concerned. is exhibiting no symptoms. Oncology INSULATION MANAGER has scheduled a follow-up at the cancer center for redraw a CBC and discuss other labs that were drawn that have not returned yet. 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 (2) Chest pain Priority: Secondary Status: Acute Comments: Patient denies chest pain today. He is not having chest pain since the night of arrival. Troponins negative, chest x-ray is negative. Echocardiogram shows preserved EF with mild LV DD and no significant valvular dysfunction. Stress test completed today shows a gated EF of 64% and a small sized, moderate intensity, fixed apicoinferior defect, wall motion was normal, this was most consistent with artifact. Perfusion imaging was negative for ischemia or infarct. Patient discussed risk factor modifications including weight loss, reduction of triglycerides and cholesterol, and better control of his blood glucose. Suspect chest pain was due to carbon monoxide exposure, as well as stress at work. 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 Recommend follow-up with primary care for continued evaluation, patient has follow-up with oncology for discussion of lab values and recheck of CBC. Qualifiers: Chest pain type: unspecified Qualified Code(s): R07.9 - Chest pain, unspecified (3) DVT prophylaxis Priority: Secondary Status: Acute Comments: Heparin subcutaneous twice daily. (4) Diabetes type 2, uncontrolled Priority: Secondary Status: Chronic Comments: Uncontrolled diabetes with A1c of 9.8. Patient reports that he is been noncompliant with medications due to diarrhea. He also reports he has been noncompliant with diet, as well. I am going to place patient back on metformin 500 mg twice daily, patient and I discussed lifestyle modifications include watching calories, carbohydrates, and including exercising his daily routine. I started recommendation is 45 g carbohydrates per meal. Patient most likely benefit from diabetes education that will need to be ordered by primary care. Qualifiers: Diabetes mellitus terminal operator insulin use: without halfway use Diabetes mellitus complication status: without complication Qualified Code(s): E11.65 - Type 2 diabetes mellitus with hyperglycemia (5) Hyperlipidemia Priority: Secondary Status: Chronic Comments: Patient states that he has been aware of hyperlipidemia for multiple years, she states that triglycerides 1440 are 3 times higher than what they used to be, patient also reports that cholesterol used to be baseline. During this visit is 352. Patient be started on 40 mg of Lipitor nightly. Patient and I discussed lifestyle modifications including diet modifications, adding exercise to his routine. Patient states that he eats [employer] frequently and that he is aware that is a change that needs to be made. Qualifiers: Hyperlipidemia type: mixed hyperlipidemia Qualified Code(s): E78.2 - Mixed hyperlipidemia Hospital course: Mr. Magana is a 57 year old male - Time Spent with Patient Total time spent providing and/or coordinating discharge services: - Discharge Medications Prescriptions: Aspirin Enteric Coated [Aspirin EC] 81 mg PO DAILY #30 tablet. Atorvastatin [Lipitor] 40 mg PO HS #30 tablet metFORMIN [Glucophage] 500 mg PO BIDWM #60 tablet Home Medications: Cetirizine HCl [Zyrtec] 10 mg PO DAILY 11/11/17 [History] Aspirin Enteric Coated [Aspirin EC] 81 mg PO DAILY #30 tablet. 11/13/17 [Rx] Atorvastatin [Lipitor] 40 mg PO HS #30 tablet 11/13/17 [Rx] metFORMIN [Glucophage] 500 mg PO BIDWM #60 tablet 11/13/17 [Rx] Allergies/Adverse Reactions: 3 Allergy/AdvReac Type Severity Reaction Status Date / Time No Known Allergies Allergy Verified 11/11/17 16:37 Date of admission: 11/11/17 22:44 Primary care physician: PCP NONE Discharging clinician: Belinda Neri Anticipated date of discharge: 11/13/17 - Constitutional Vitals: Temp Pulse Resp BP Pulse Ox 98.5 F 83 16 118/67 96 11/13/17 10:02 11/13/17 10:02 11/13/17 10:02 11/13/17 10:02 11/13/17 10:02 General appearance: Present: cooperative, A&O X 3, pleasant, no acute distress, answers questions appropriately - Head Head exam: Present: atraumatic, normal inspection, normocephalic - Eye Eye exam: Present: conjuntiva pink, sclera anicteric - Neck Neck exam general surgery: Present: supple, trachea midline. Absent: lymphadenopathy, tenderness - Respiratory Respiratory exam: Present: CTAB. Absent: accessory muscle use, rales, rhonchi, wheezes - Cardiovascular Cardiovascular exam: Present: RRR, +S1, +S2. Absent: bradycardia, diastolic murmur, gallop, irregular rhythm, rubs, systolic murmur, tachycardia - GI/Abdominal GI/Abdominal exam: Present: distended, normal bowel sounds, soft. Absent: hepatomegaly, tenderness - Extremities Exam Extremities exam: Present: normal capillary refill, normal inspection, warm, radial pulses palpable and symmetrical. Absent: calf tenderness, cyanotic, pedal edema, tenderness - Neurological Exam Neurological exam: Present: alert, oriented X3, no focal deficits. Absent: facial droop, speech deficit - Skin Skin exam: Present: dry, intact, warm. Absent: rash - Patient Status Disposition: Home, Self-Care Condition: Good Functional capacity at discharge: independent ambulation Overall status at discharge: patient is back to baseline - Ambulatory Orders Ambulatory Orders: Complete Blood Count [HEME] Time Frame: 11/20/17, Facility: [facility], Location: Lab - Discharge Instructions Follow Up With: NONE,PCP [Primary Care Provider] - Additional Instructions: Follow up with your PCP in the next 7-10 days for a recheck. I was unable to e-prescribe your prescriptions to your pharmacy,so you will get hard copies. Take your medications as directed. Watch your carbohydrate and cholesterol intake, try to keep meals to 45g carbohydrates and try to add some exercise 30 min 3x/week to start. Return to the ER as needed if you have any other problems or concerns, or if your symptoms return or worsen. - Diet and Activity Activity: increase activity as tolerated Diet: diabetic diet, low fat, low cholesterol
[2017-11-17 14:42] LABS: JAK2 (V617F) Mutation by PCR NOT DETECTED
== END 2017-11-13 17:48 | disposition home or self-care (01) ==
LOC: EMEROO 16:21 → 3NENU 16:21
PROVIDERS: ADMIT Pediatrics; ATTEND Internal Medicine